=== PATIENT | male | born 1940 | race Caucasian/White ===

== ENCOUNTER 2021-12-08 07:47 | Day surgery (SDC) | payer MEDICARE, SELFPAY ==
[2021-12-08 08:20] VITALS: BP 169/69; PULSE 52; RESP 16; TEMP 36.3; O2SAT 98
[2021-12-08] MEDS: Tropicam./Phenyleph. (1/2.5%) 5 ML BTL OD ×3 (08:28→08:43)
--- NOTE | 2021-12-08 08:43 | ANES.PREOP_ITS ---
General Info Date of Service Date Performed: 12/08/21 Height: 6 ft 3 in Weight: 118.3 kg Body Mass Index (BMI): 32.5 Surgical Procedure: Operation Date: 12/08/21 09:55 Proposed Procedure Side Surgeon p Cataract Extraction with IOL Implant Right Jose Alberto Alvarez MD Meds Allergies and Home Medications Allergies Allergy/AdvReac Type Severity Reaction Status Date / Time Sulfa (Sulfonamide Allergy Unknown Skin Rash Verified 12/08/21 08:24 Antibiotics) Home Medication Medication Instructions Recorded acetaminophen 325 mg capsule 650 mg PO DIRECTED 12/06/21 amlodipine 2.5 mg tablet 2.5 mg PO DAILY 12/06/21 aspirin 81 mg chewable tablet 81 mg PO DAILY 12/06/21 ciprofloxacin HCl 500 mg tablet 500 mg PO Q12H 12/06/21 diphenhydramine HCl 25 mg tablet 25 mg PO HS 12/06/21 hydrochlorothiazide 12.5 mg capsule 12.5 mg PO DAILY 12/06/21 ibuprofen 200 mg tablet 200 mg PO DIRECTED PRN 12/06/21 metoprolol tartrate 50 mg tablet 50 mg PO BID 12/06/21 nitroglycerin 0.4 mg sublingual 0.4 mg SUBLINGUAL DIRECTED 12/06/21 tablet omeprazole 20 mg capsule,delayed 20 mg PO DAILY 12/06/21 release Current Visit Medications: Current Medications Generic Name Dose Route Start Last Admin Trade Name Freq PRN Reason Stop Dose Admin Acetaminophen 1,000 mg 12/08/21 06:00 Acetaminophen 500 Mg Tab PO Q4H PRN PRN Miscellaneous Medication 0 ml 12/08/21 06:00 Prednisolone 1%, Moxifloxacin 0.5%, Nepafenac 0.1% 5ml Btl OD DIRECTED [facility] Miscellaneous Medication 0 ml 12/08/21 06:00 12/08/21 08:43 Tropicam./Phenyleph. (1/2.5%) 5 Ml Btl OD 1 drp DIRECTED [facility] Administration Tetracaine HCl 0 ml 12/08/21 06:00 Tetracaine 0.5% 4 Ml Btl OD DIRECTED [facility] Active Problems Active Problems: Problem Status Onset Code Nuclear sclerotic cataract of right eye H25.11 Posterior subcapsular age-related cataract, right eye H25.041 Medical History Medical History Cataract Cellulitis Concussion with no loss of consciousness Epidermoid cyst Gastroparesis Hypersomnia Hypertensive disorder Idiopathic osteoarthritis of knee Knee pain Low back strain Malignant tumor of prostate Obesity SWETHA (obstructive sleep apnea) Surgical History Surgical History H/O left wrist surgery History of prostate surgery History of total left knee replacement (TKR) Tobacco Smoking/Tobacco Use Status: Former Tobacco Use Alcohol Alcohol Intake: current Alcohol intake frequency: 0-2 drinks per day Alcohol type: hard liquor Substance Use Substance use type: does not use Vital Signs and Lab Results Vital Signs Most Recent Vital Signs in EMR: Most Recent Vital Signs Temp Pulse Resp BP Pulse Ox 36.3 C L 52 L 16 169/69 H 98 12/08/21 08:20 12/08/21 08:20 12/08/21 08:20 12/08/21 08:20 12/08/21 08:20 Lab Results Blood Type / Crossmatch: No Data to Display Complete Blood Count: No Data to Display Complete Metabolic Panel: No Data to Display Liver Function Panel: No Data to Display Coagulation Panel: No Data to Display Cardiac Panel: No Data to Display Arterial Blood Gas: No Data to Display Venous Blood Gas: No Data to Display Pancreas Panel: No Data to Display Thyroid Panel: No Data to Display Infectious Disease: No Data to Display Blood Cultures: No Data to Display Toxicology Panel: No Data to Display Anesthesia Assessment and Plan Anesthesia History Personal History: PONV Family History: No Family History of Anesthesia Complications Exercise Tolerance Exercise Tolerance: Metabolic Equivalents>4 Pertinent Negatives Pertinent Negatives: No Symptoms of GERD Cardiac & Pulmonary Exam Cardiac Exam: Normal S1/S2 Heart Sounds Pulmonary Exam: Clear Bilateral Breath Sounds Implantable Cardiac Device Does patient have a Pacemaker or an ICD?: No Airway Exam Known Difficult Airway: No Mallampati Class: 2 Mouth Opening: Normal (> 3cm) Thyromental Distance: Greater than 3 cm Facial Hair: Full Ramírez (upper) Neck Range of Motion: Full ROM Neck Circumference: Thick Teeth Condition: Removable Dentures/Plates Upper (upper front plate, few missing teeth, otherwise healthy ) ASA Classification ASA Score: ASA 2 Emergency Case?: No NPO Status NPO Status: NPO Clears >2 hours, Solids >8 hours Anesthesia Plan Resuscitation Status: Full Code Anesthesia Technique: MAC Anesthesia Airway Planned: Natural Airway Monitors Used: Standard Monitors
[2021-12-08 08:56] VITALS: BMI 32.5
[2021-12-08] MEDS: Tetracaine 0.5% 4 ML BTL OD (09:37)
[2021-12-08] MEDS: Lidocaine 2% Jelly 6 ML SYR (09:38)
[2021-12-08] MEDS: Duovisc Viscoelastic System EACH 1 EACH (09:38)
[2021-12-08] MEDS: Balanced Salt Soln.-PLUS 500 ML BAG (09:38)
[2021-12-08] MEDS: Povidone-Iodine Ophth 30 ML BTL (09:39)
[2021-12-08 10:00] VITALS: BP 159/70; PULSE 55; RESP 16; TEMP 36.2; O2SAT 97
--- NOTE | 2021-12-08 10:01 | W.PM.DSUDISC ---
Discharge Plan Disposition Patient Disposition: HOME Condition: Good Discharge Details Attending Provider: Jose Alberto Alvarez Primary Care Provider: No,Local Home Meds and New Rx's Prescriptions: No Action amlodipine 2.5 mg Tablet 2.5 mg PO DAILY 0RF ciprofloxacin HCl 500 mg Tablet 500 mg PO Q12H 0RF Rx Instructions: as directed for 3 days. Self start therapy diphenhydramine HCl 25 mg Tablet 25 mg PO HS 0RF metoprolol tartrate 50 mg Tablet 50 mg PO BID 0RF hydrochlorothiazide 12.5 mg Capsule 12.5 mg PO DAILY 0RF ibuprofen 200 mg Tablet 200 mg PO DIRECTED PRN0RF nitroglycerin 0.4 mg Tablet, Sublingual 0.4 mg sublingual DIRECTED 0RF omeprazole 20 mg Capsule,Delayed Release(Dr/Ec) 20 mg PO DAILY 0RF aspirin [Baby Aspirin] 81 mg Tablet,Chewable 81 mg PO DAILY 0RF acetaminophen 325 mg Capsule 650 mg PO DIRECTED 0RF Discharge Instructions Stand Alone Forms: Post-op Topical Cataract, Lei Lindquist (DSU) Discharge Orders Discharge Orders: Discharge Order (Routine); Ordered 12/08/21 Ordered By: Jose Alberto Alvarez DS: Diagnosis Discharge Diagnosis (1) Nuclear sclerotic cataract of right eye: Status: Resolved (2) Posterior subcapsular age-related cataract, right eye: Status: Resolved
--- NOTE | 2021-12-08 10:04 | W.PM.OP ---
Date of service: 12/08/21 Time of Service: 10:04 Operative Note Operative Note DATE OF PROCEDURE: 12/08/21 PRE-OP DIAGNOSIS: Nuclear/posterior subcapsular cataract, right eye POST-OP DIAGNOSIS: same PROCEDURE: Cataract extraction using phacoemulsification with intraocular lens implant, right eye SURGEON: Jose Alberto Alvarez ANESTHESIA TYPE: Local By Surgeon and MAC Refer to Anesthesia Record ESTIMATED BLOOD LOSS: 0 PATHOLOGY: none sent COMPLICATIONS: None Patient was transported to: same day Patient's condition: stable Implants: [employer] & Wilfredo/MAURICE Tecnis [id number] Indications: Progressive visual loss due to cataract, right eye Procedure Description: CATARACT SURGERY OPERATIVE REPORT PREOPERATIVE DIAGNOSIS: 1. Nuclear/posterior subcapsular cataract, right POSTOPERATIVE DIAGNOSIS: Same OPERATION: 1. Cataract extraction using phacoemulsification with posterior chamber intraocular lens implant, right eye. IOL: IOL Direct Marketing Specialist/Model: [employer] / MAURICE Tecnis [id number] IOL Power: + 21 point diopters IOL Serial Number: [id number] Optic Diameter: 6.0mm Haptic/Overall Diameter: 13.0mm PHACO INFO: Mukund Parclick.comurion Vision System with OZil and Active Fluidics Cumulative Dispersed Energy (CDE): 8.58 seconds SURGEON: Jose Alberto Alvarez MD, CODIE ANESTHESIA: Monitored Anesthesia Care (MAC), with local sub-tenon's anesthetic infiltration COMPLICATIONS: None SPECIMENS: None INDICATIONS FOR PROCEDURE: The patient is an 81-year-old gentleman with history of diminished visual acuity in his right eye secondary to the development of nuclear/posterior subcapsular cataract. The option of cataract surgery was offered to the patient and he felt he was symptomatic enough that he wished to proceed PROCEDURE: The correct surgical eye was identified and marked as the right eye and the pupil was dilated in the preoperative area using mydriatics and cycloplegics. The dilated pupil size was 8.0 mm. He elected to proceed without oral sedation. The patient was brought to the operating room where cardiopulmonary monitoring was instituted and surgical time-out was performed, confirming the correct operative eye and IOL power. Topical anesthesia was administered and ophthalmic povidone-iodine 5% was instilled into the conjunctival fornices. Lidocaine gel was applied to the cornea and the abhishek-ocular area was prepped with Betadine 10% solution and draped in the usual sterile fashion for intraocular surgery, including an aperture drape. A Tegaderm transparent film dressing was cut in half and used to cover the lashes and lid margins. Care was taken to sequester the lashes and lid margins under the Tegaderm dressing. A lid speculum was placed between the lids of the operative eye and the Mukund LuxOR Revalia operating microscope was maneuvered into position. Pablo scissors were then used to make a conjunctival buttonhole approximately 6mm posterior to the limbus in the inferonasal quadrant. Blunt dissection was carried out to expose bare sclera, and a blunt-tipped sub-tenon?s anesthesia cannula was introduced and passed posteriorly along the globe where non-preserved plain lidocaine was injected into posterior sub-Tenon?s space. A sideport knife was used to make a paracentesis port inferotemporally. Intraocular phenylephrine/lidocaine was injected into the anterior chamber. The anterior chamber was filled with viscoelastic. A 2.4mm keratome knife was used to create a half-thickness groove at the limbus and then to construct a three-plane near-clear corneal tunnel extending 2.0mm into clear cornea superiortemporally. A flap was raised on the anterior capsule and capsulorhexis forceps were used to complete a continuous curvilinear capsulorhexis of five-point mm. Balanced salt solution was then used to perform cortical cleaving hydrodissection and nuclear hydrodelineation until the lens could be freely rotated within the capsular bag. The lens nucleus was then disassembled and removed within the capsular bag and iris plane using phacoemulsification. Residual cortical material was removed using the I/A handpiece. The posterior capsule was carefully polished to remove as much residual lens epithelial cells as safely possible. The capsular bag was then inflated and the anterior chamber deepened with viscoelastic. The lens implant described above was inserted into the capsular bag using the MAURICE Iqugmiut Injector. A Kuglen hook was used to dial the IOL into position. Residual viscoelastic was then removed first from posterior to the IOL, then from the anterior chamber using the I/A handpiece. The lens implant was noted to center nicely within the capsular bag. The incisions were stromally hydrated, and the anterior chamber was reformed using BSS. Then 0.5cc of moxifloxacin 1.0mg/ml were injected into the capsular bag and anterior chamber. The incisions were checked with a Weck spear and found to be secure. Several drops of ophthalmic povidone-iodine 5% were then applied to the eye followed by two drops of Imprimis combination prednisolone/moxifloxacin/nepafenac solution. The drapes were removed and a clear plastic protective eye shield was placed over the eye. The patient was then returned to Same Day Surgery in stable condition.
--- NOTE | 2021-12-08 10:30 | W.ANESPOSTOP ---
Postoperative Evaluation Date, Time and Location Date Performed: 12/08/21 Time Performed: 10:02 Patient Location: Day Surgery Unit Vital Signs Most Recent Imported Vital Signs: Most Recent Vital Signs Temp Pulse Resp BP Pulse Ox 36.2 C L 55 L 16 159/70 H 97 12/08/21 10:00 12/08/21 10:00 12/08/21 10:00 12/08/21 10:00 12/08/21 10:00 Pain Score Most Recent Pain Score: Most Recent Pain Score Pain Level 0 12/08/21 10:00 Assessment Mental Status: Awake (Alert & Oriented to Patient Baseline) Airway and Respiratory Function: Patent airway with normal (patient baseline) respiratory exam Cardiovascular Function: Hemodynamically Stable Hydration Status: Adequately Hydrated Nausea & Vomiting: No Nausea or Vomiting Pain: Pt. Denies Any Pain Peripheral Nerve Block: Patient did not receive a nerve block
== END 2021-12-08 10:28 | disposition home or self-care (01) ==
PROVIDERS: Visit Provider Ophthalmology
PROC: (CPT 66984; principal; 2021-12-08 09:45)
DX: H25.041 Posterior subcapsular polar age-related cataract, right eye (principal); G47.33 Obstructive sleep apnea (adult) (pediatric); I10 Essential (primary) hypertension
CPT/HCPCS: 66984; V2632

== ENCOUNTER 2021-12-29 08:54 | Day surgery (SDC) | payer MEDICARE, SELFPAY ==
--- NOTE | 2021-12-29 07:10 | HPE_ITS ---
Assessment and Plan Assessment and plan (1) Posterior subcapsular age-related cataract of left eye: Status: Acute Assessment and plan: Assessment: Visually significant cataracts of both eyes. Plan: Cataract extraction with lens implantation of the left eye, followed by the right eye. (2) Nuclear sclerotic cataract of left eye: Status: Acute Assessment and plan: Assessment: Visually significant cataracts of both eyes. Plan: Cataract extraction with lens implantation of the left eye, followed by the right eye. (3) Nuclear sclerotic cataract of right eye: Status: Resolved Assessment and plan: Assessment: Visually significant cataracts of both eyes. Plan: Cataract extraction with lens implantation of the left eye, followed by the right eye. (4) Posterior subcapsular age-related cataract, right eye: Status: Resolved Assessment and plan: Assessment: Visually significant cataracts of both eyes. Plan: Cataract ex traction with lens implantation of the left eye, followed by the right eye. History of Present Illness History of Present Illness Chief Complaint: Progressive decreased vision in both eyes Narrative: Patient is an 81-year-old gentleman with history of progressive decreased vision in both eyes over the past several years, worsening over the past 6 months. He notes significant difficulty with driving at night due to halos around lights. Review of Systems All systems reviewed & are unremarkable except as noted in HPI and below PFSH All Active Problems Posterior subcapsular age-related cataract of left eye (Acute) Nuclear sclerotic cataract of left eye (Acute) Medical History Cataract Cellulitis Concussion with no loss of consciousness Epidermoid cyst Gastroparesis Hypersomnia Hypertensive disorder Idiopathic osteoarthritis of knee Knee pain Low back strain Malignant tumor of prostate Obesity SWETHA (obstructive sleep apnea) Surgical History H/O left wrist surgery History of prostate surgery History of total left knee replacement (TKR) Social History Smoking/Tobacco Use Status: Former Tobacco Use Quit Date: 09/02/68 Smoking risk assessment performed?: Yes Alcohol Intake: current Alcohol Intake frequency: 0-2 drinks per day Alcohol type: hard liquor Substance use type: does not use Do you feel safe at home: Yes Do you feel safe in your relationship?: Yes Meds Allergies and Home Medications Allergies Allergy/AdvReac Type Severity Reaction Status Date / Time Sulfa (Sulfonamide Allergy Unknown Skin Rash Verified 12/29/21 09:18 Antibiotics) Home Medications Medication Instructions Recorded Confirmed Type acetaminophen 325 mg capsule 650 mg PO DIRECTED 12/06/21 12/29/21 History amlodipine 2.5 mg tablet 2.5 mg PO DAILY 12/06/21 12/29/21 History aspirin 81 mg chewable tablet 81 mg PO DAILY 12/06/21 12/29/21 History ciprofloxacin HCl 500 mg tablet 500 mg PO Q12H 12/06/21 12/29/21 History diphenhydramine HCl 25 mg tablet 25 mg PO HS 12/06/21 12/29/21 History hydrochlorothiazide 12.5 mg capsule 12.5 mg PO DAILY 12/06/21 12/29/21 History ibuprofen 200 mg tablet 200 mg PO DIRECTED PRN 12/06/21 12/29/21 History metoprolol tartrate 50 mg tablet 50 mg PO BID 12/06/21 12/29/21 History nitroglycerin 0.4 mg sublingual 0.4 mg SUBLINGUAL DIRECTED 12/06/21 12/29/21 History tablet omeprazole 20 mg capsule,delayed 20 mg PO DAILY 12/06/21 12/29/21 History release Exam Eyes Other: On examination he was noted to have a corrected visual acuity of 20/70 OD, 20/50 OS. Intraocular pressure 13 OD 11 OS. Extract motility is normal. Slit-lamp exam reveals moderate bilateral nuclear and posterior subcapsular cataract. Funduscopic examination reveals disc cupping of 0.2 OD, 0.5 OS. Retinal vasculature is normal. The macula is normal OU. In the right eye there is a 1 disc diameter flat choroidal nevus. Peripheral retina is normal. Resp Auscultation: clear to auscultation bilaterally Cardio Rate: regular rate Rhythm: regular rhythm
[2021-12-29 09:14] VITALS: BP 160/87; PULSE 58; RESP 16; TEMP 36.4; O2SAT 98
[2021-12-29] MEDS: Tropicam./Phenyleph. (1/2.5%) 5 ML BTL OS ×3 (09:18→09:32)
--- NOTE | 2021-12-29 10:02 | W.ANESPRE ---
General Info Date of Service Date Performed: 12/29/21 Height: 6 ft 1 in Weight: 119 kg Body Mass Index (BMI): 34.6 Surgical Procedure: Operation Date: 12/29/21 10:40 Proposed Procedure Side Surgeon p Cataract Extraction with IOL Implant Left Jose Alberto Alvarez MD Meds Allergies and Home Medications Allergies Allergy/AdvReac Type Severity Reaction Status Date / Time Sulfa (Sulfonamide Allergy Unknown Skin Rash Verified 12/29/21 09:18 Antibiotics) Home Medication Medication Instructions Recorded acetaminophen 325 mg capsule 650 mg PO DIRECTED 12/06/21 amlodipine 2.5 mg tablet 2.5 mg PO DAILY 12/06/21 aspirin 81 mg chewable tablet 81 mg PO DAILY 12/06/21 ciprofloxacin HCl 500 mg tablet 500 mg PO Q12H 12/06/21 diphenhydramine HCl 25 mg tablet 25 mg PO HS 12/06/21 hydrochlorothiazide 12.5 mg capsule 12.5 mg PO DAILY 12/06/21 ibuprofen 200 mg tablet 200 mg PO DIRECTED PRN 12/06/21 metoprolol tartrate 50 mg tablet 50 mg PO BID 12/06/21 nitroglycerin 0.4 mg sublingual 0.4 mg SUBLINGUAL DIRECTED 12/06/21 tablet omeprazole 20 mg capsule,delayed 20 mg PO DAILY 12/06/21 release Current Visit Medications: Current Medications Generic Name Dose Route Start Last Admin Trade Name Freq PRN Reason Stop Dose Admin Acetaminophen 1,000 mg 12/29/21 06:00 Acetaminophen 500 Mg Tab PO Q4H PRN PRN Miscellaneous Medication 0 ml 12/29/21 06:00 Prednisolone 1%, Moxifloxacin 0.5%, Nepafenac 0.1% 5ml Btl OS DIRECTED [facility] Miscellaneous Medication 0 ml 12/29/21 06:00 12/29/21 09:32 Tropicam./Phenyleph. (1/2.5%) 5 Ml Btl OS 1 drp DIRECTED [facility] Administration Tetracaine HCl 0 ml 12/29/21 06:00 Tetracaine 0.5% 4 Ml Btl OS DIRECTED [facility] PFSH Active Problems Active Problems: Problem Status Onset Code Posterior subcapsular age-related cataract of left eye H25.042 Nuclear sclerotic cataract of left eye H25.12 Nuclear sclerotic cataract of right eye H25.11 Posterior subcapsular age-related cataract, right eye H25.041 Medical History Medical History Cataract Cellulitis Concussion with no loss of consciousness Epidermoid cyst Gastroparesis Hypersomnia Hypertensive disorder Idiopathic osteoarthritis of knee Knee pain Low back strain Malignant tumor of prostate Obesity SWETHA (obstructive sleep apnea) Surgical History Surgical History H/O left wrist surgery History of prostate surgery History of total left knee replacement (TKR) Tobacco Smoking/Tobacco Use Status: Former Tobacco Use Alcohol Alcohol Intake: current Alcohol intake frequency: 0-2 drinks per day Alcohol type: hard liquor Substance Use Substance use type: does not use Vital Signs and Lab Results Vital Signs Most Recent Vital Signs in EMR: Most Recent Vital Signs Temp Pulse Resp BP Pulse Ox 36.4 C L 58 L 16 160/87 H 98 12/29/21 09:14 12/29/21 09:14 12/29/21 09:14 12/29/21 09:14 12/29/21 09:14 Lab Results Blood Type / Crossmatch: No Data to Display Complete Blood Count: No Data to Display Complete Metabolic Panel: No Data to Display Liver Function Panel: No Data to Display Coagulation Panel: No Data to Display Cardiac Panel: No Data to Display Arterial Blood Gas: No Data to Display Venous Blood Gas: No Data to Display Pancreas Panel: No Data to Display Thyroid Panel: No Data to Display Infectious Disease: No Data to Display Blood Cultures: No Data to Display Toxicology Panel: No Data to Display Anesthesia Assessment and Plan Anesthesia History Personal History: PONV Family History: No Family History of Anesthesia Complications Exercise Tolerance Exercise Tolerance: Metabolic Equivalents>4 Cardiac & Pulmonary Exam Cardiac Exam: Normal S1/S2 Heart Sounds Pulmonary Exam: Clear Bilateral Breath Sounds Implantable Cardiac Device Does patient have a Pacemaker or an ICD?: No Airway Exam Known Difficult Airway: No Mallampati Class: 2 Mouth Opening: Normal (> 3cm) Thyromental Distance: Greater than 3 cm Neck Range of Motion: Full ROM Neck Circumference: Thick Teeth Condition: Removable Dentures/Plates Upper (upper front plate, few missing teeth, otherwise healthy ) ASA Classification ASA Score: ASA 2 Emergency Case?: No NPO Status NPO Status: NPO Clears >2 hours, Solids >8 hours Anesthesia Plan Resuscitation Status: Full Code Anesthesia Technique: MAC Anesthesia Airway Planned: Natural Airway Monitors Used: Standard Monitors
[2021-12-29 10:03] VITALS: BMI 34.6
[2021-12-29] MEDS: Tetracaine 0.5% 4 ML BTL OS (10:44)
[2021-12-29] MEDS: Balanced Salt Soln.-PLUS 500 ML BAG (10:44)
[2021-12-29] MEDS: Lidocaine 2% Jelly 6 ML SYR (10:45)
[2021-12-29] MEDS: Duovisc Viscoelastic System EACH 1 EACH (10:45)
[2021-12-29] MEDS: Povidone-Iodine Ophth 30 ML BTL (10:46)
--- NOTE | 2021-12-29 11:02 | W.PM.DSUDISC ---
Discharge Plan Disposition Patient Disposition: HOME Condition: Good Discharge Details Attending Provider: Jose Alberto Alvarez Primary Care Provider: None,None Home Meds and New Rx's Prescriptions: No Action amlodipine 2.5 mg Tablet 2.5 mg PO DAILY 0RF ciprofloxacin HCl 500 mg Tablet 500 mg PO Q12H 0RF Rx Instructions: as directed for 3 days. Self start therapy diphenhydramine HCl 25 mg Tablet 25 mg PO HS 0RF metoprolol tartrate 50 mg Tablet 50 mg PO BID 0RF hydrochlorothiazide 12.5 mg Capsule 12.5 mg PO DAILY 0RF ibuprofen 200 mg Tablet 200 mg PO DIRECTED PRN0RF nitroglycerin 0.4 mg Tablet, Sublingual 0.4 mg sublingual DIRECTED 0RF omeprazole 20 mg Capsule,Delayed Release(Dr/Ec) 20 mg PO DAILY 0RF aspirin [Baby Aspirin] 81 mg Tablet,Chewable 81 mg PO DAILY 0RF acetaminophen 325 mg Capsule 650 mg PO DIRECTED 0RF Discharge Instructions Stand Alone Forms: Post-op Topical Cataract, Lei Lindquist (DSU) Discharge Orders Discharge Orders: Discharge Order (Routine); Ordered 12/29/21 Ordered By: Jose Alberto Alvarez DS: Diagnosis Discharge Diagnosis (1) Posterior subcapsular age-related cataract of left eye: Status: Resolved (2) Nuclear sclerotic cataract of left eye: Status: Resolved
--- NOTE | 2021-12-29 11:03 | ROE_ITS ---
Date of service: 12/29/21 Time of Service: 11:03 Operative Note Operative Note DATE OF PROCEDURE: 12/29/21 PRE-OP DIAGNOSIS: Nuclear/posterior subcapsular cataract, left eye POST-OP DIAGNOSIS: same PROCEDURE: Cataract extraction using phacoemulsification with intraocular lens implant, left eye SURGEON: Jose Alberto Alvarez ANESTHESIA TYPE: Local By Surgeon and MAC Refer to Anesthesia Record PATHOLOGY: none sent COMPLICATIONS: None Patient was transported to: same day Patient's condition: stable Implants: Wilfredo and Wilfred[employer] / [employer] Tecnis [id number] Indications: Progressive decreased vision due to cataract, left eye Procedure Description: CATARACT SURGERY OPERATIVE REPORT PREOPERATIVE DIAGNOSIS: 1. Nuclear/posterior subcapsular cataract, left eye POSTOPERATIVE DIAGNOSIS: Same OPERATION: 1. Cataract extraction using phacoemulsification with posterior chamber intraocular lens implant, left eye. 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 He has already undergone cataract surgery in the right eye and is doing well postoperatively. He now presents for cataract surgery in the left eye. PROCEDURE: The correct surgical eye was identified and marked as the left eye and the pupil was dilated in the preoperative area using mydriatics and cycloplegics. The dilated pupil size was 7.0 mm. Oral sedation was administered in the form of an Imprimis MKO Melt (midazolam 3mg/ketamine 25mg/ondansetron 2mg). The patient was brought to the operating room where cardiopulmonary monitoring was instituted and surgical time-out was performed, confirming the correct operative eye and IOL power. Topical anesthesia was administered and ophthalmic povidone-iodine 5% was instilled into the conjunctival fornices. Lidocaine gel was applied to the cornea and the abhishek-ocular area was prepped with Betadine 10% solution and draped in the usual sterile fashion for intraocular surgery, including an aperture drape. A Tegaderm transparent film dressing was cut in half and used to cover the lashes and lid margins. Care was taken to sequester the lashes and lid margins under the Tegaderm dressing. A lid speculum was placed between the lids of the operative eye and the Mukund Lux[employer] Revalia operating microscope was maneuvered into position. Pablo scissors were then used to make a conjunctival buttonhole approximately 6mm posterior to the limbus in the inferonasal quadrant. Blunt dissection was carried out to expose bare sclera, and a blunt-tipped sub-tenon?s anesthesia cannula was introduced and passed posteriorly along the globe where non- preserved plain lidocaine was injected into posterior sub-Tenon?s space. A sideport knife was used to make a paracentesis port superiorly/superiortemporally. Intraocular phenylephrine/lidocaine was injected int the anterior chamber.. The anterior chamber was filled with viscoelastic. A 2.4mm keratome knife was used to create a half-thickness groove at the limbus and then to construct a three-plane near-clear corneal tunnel extending 2.0mm into clear cornea at the 3:00 position. A flap was raised on the anterior capsule and capsulorhexis forceps were used to complete a continuous curvilinear capsulorhexis of 5.5 mm. Balanced salt solution was then used to perform cortical cleaving hydrodissection and nuclear hydrodelineation until the lens could be freely rotated within the capsular bag. The lens nucleus was then disassembled and removed within the capsular bag and iris plane using phacoemulsification. Residual cortical material was removed using the 45-degree angled silicone I/A tip with 0.3mm port. The posterior capsule was carefully polished to remove as much residual lens epithelial cells as safely possible. The capsular bag was then inflated and the anterior chamber deepened with viscoelastic. The lens implant described above was inserted into the capsular bag using the MAURICE [place] Injector. A Kuglen hook was used to dial the IOL into position. Residual viscoelastic was then removed first from posterior to the IOL, then from the anterior chamber using the I/A handpiece. The lens implant was noted to center nicely within the capsular bag. The incisions were stromally hydrated, and the anterior chamber was reformed using BSS. Then 0.5cc of moxifloxacin 1.0mg/ml were injected into the capsular bag and anterior chamber. The incisions were checked with a Weck spear and found to be secure. Several drops of ophthalmic povidone-iodine 5% were then applied to the eye followed by two drops of Imprimis combination prednisolone/moxifloxacin/nepafenac solution. The drapes were removed and a clear plastic protective eye shield was placed over the eye. The patient was then returned to [facility] Day Surgery in stable condition.
[2021-12-29 11:05] VITALS: BP 141/84; PULSE 53; RESP 16; TEMP 36.3; O2SAT 95
--- NOTE | 2021-12-29 11:20 | W.ANESPOSTOP ---
Postoperative Evaluation Date, Time and Location Date Performed: 12/29/21 Time Performed: 11:10 Patient Location: Day Surgery Unit Vital Signs Most Recent Imported Vital Signs: Most Recent Vital Signs Temp Pulse Resp BP Pulse Ox 36.3 C L 53 L 16 141/84 H 95 12/29/21 11:05 12/29/21 11:05 12/29/21 11:05 12/29/21 11:05 12/29/21 11:05 Pain Score Most Recent Pain Score: Most Recent Pain Score Pain Level 0 12/29/21 11:05 Assessment Mental Status: Awake (Alert & Oriented to Patient Baseline) Airway and Respiratory Function: Patent airway with normal (patient baseline) respiratory exam Cardiovascular Function: Hemodynamically Stable Hydration Status: Adequately Hydrated Nausea & Vomiting: No Nausea or Vomiting Pain: Pt. Denies Any Pain Peripheral Nerve Block: Patient did not receive a nerve block
[2021-12-29 11:40] VITALS: BP 116/71; PULSE 49; RESP 16; TEMP 36.6; O2SAT 97
== END 2021-12-29 11:45 | disposition home or self-care (01) ==
PROVIDERS: Visit Provider Ophthalmology
PROC: (CPT 66984; principal; 2021-12-29 10:30)
DX: H25.042 Posterior subcapsular polar age-related cataract, left eye (principal); G47.33 Obstructive sleep apnea (adult) (pediatric); I10 Essential (primary) hypertension
CPT/HCPCS: 66984; V2632